=== PATIENT | male | born 2000 | race Asian ===

== ENCOUNTER 2022-09-08 15:17 | Outpatient (CLI) | payer OTHER, SELFPAY ==
--- NOTE | 2022-09-08 15:30 | MR_ITS ---
[facility] [address] [facility] [address] Phone:?[phone] Fax:?[phone] Referring Physician Information: Shahram Whitlock [address] [facility] [address] Phone:?[phone] Fax:?[phone] Patient:Amna Hernandez D.O.B:?2000 Sex:?Male Phone:? [facility] MRN:[id number] Exam Date:?09/08/2022 ? EXAM: MRI of the RIGHT KNEE, without contrast CLINICAL HISTORY: Chronic right knee pain. No history of previous surgery to the right knee. Evaluate for lateral meniscal tear. COMPARISONS: None available. TECHNICAL: MR sequences of the right knee: sagittals: PD, PDFS coronals: PD, T2FS axials: PD, PDFS CONTRAST: None SEDATION: None FINDINGS: Bones: No fracture, bone marrow contusion, or other suspicious bone marrow signal abnormality. Patellofemoral joint: Cartilage: Intact. Retinacula: The medial and lateral retinacula are intact. Fat pads: The infrapatellar, quadriceps, and prefemoral fat pads are unremarkable. The Insall Salvati index index measures 1.19. The patellotrochlear index measures 0.06. The lateral trochlear inclination angle measures 23 degrees. The tibial tubercle to trochlear groove distance measures 1.5 cm. Knee joint: Effusion: Physiologic amount of joint fluid. Popliteal cyst: None. Intra-articular bodies: None. Posteromedial corner: The semimembranosus and pes anserine tendons are intact. Medial compartment: Medial meniscus: Intact. Cartilage: Intact. Lateral compartment: Lateral meniscus: Intact. Cartilage: Intact. Ligaments: Anterior cruciate ligament: Intact. Posterior cruciate ligament: Intact. Medial collateral ligament: Intact. Posterior oblique ligament: Intact. Fibular collateral ligament: Intact. Posterolateral corner: The distal biceps femoris tendon, iliotibial band, popliteus tendon, popliteus muscle, popliteofibular ligament, and arcuate ligament are intact. Extensor mechanism: Patellar tendon: There is mild proximal patellar tendinopathy best seen on sagittal series 5 image 14. Quadriceps tendon: Intact. IMPRESSION: 1. Mild proximal patellar tendinopathy. 2. Patella adriana by patellotrochlear index criteria (the Insall Salvati index is within normal limits). The tibial tubercle to trochlear groove distance measures 1.5 cm. The lateral trochlear inclination angle is within normal limits measuring 23 degrees. No abnormal edema-like signal within the fat pads. 3. Otherwise, unremarkable MRI of the right knee without osseous pathology, ligamentous injury, meniscal tear, or chondral pathology. RCB Electronically signed on 09/11/2022 8:02:00 AM by Feliz Stover M.D.
== END 2022-09-08 15:18 | disposition home or self-care (01) ==
LOC: MRI 15:19
PROVIDERS: Visit Provider Physician Assistant Surgical
DX: M25.561 Pain in right knee (principal)
CPT/HCPCS: 73721